=== PATIENT | male | born 1935 | race Caucasian/White ===

== ENCOUNTER 2017-09-19 11:15 | Emergency (ER) | payer OTHER ==
[~2017-09-19] VITALS: Ht 182.9 cm; Wt 90.7 kg
--- NOTE | 2017-09-19 11:22 | NUR ---
Unable to obtain info about home meds from [facility] staff or pt.
--- NOTE | 2017-09-19 11:38 | NUR ---
DR AREVALO AT THE BEDSIDE FOR MSE.
[2017-09-19 12:46] LABS: BASOPHILS # (AUTO) 0.1 K/uL (0.0-8.0); BASOPHILS % (AUTO) 0.8 % (0.0-2.0); EOSINOPHILS # (AUTO) 0.1 K/uL (0.0-0.7); EOSINOPHILS % (AUTO) 1.3 % (0.0-7.0); HEMATOCRIT 41.5 % (36.7-47.1); HEMOGLOBIN 14.7 g/dL (12.5-16.3); LYMPHOCYTES # (AUTO) 1.7 K/uL (20.0-40.0); LYMPHOCYTES % (AUTO) 21.1 % (20.5-51.5); MEAN CORPUSCULAR HGB CONC 36 g/dL (32.5-36.3); MEAN CORPUSCULAR VOLUME 87.4 fL (73.0-96.2); MONOCYTES # (AUTO) 0.6 K/uL (2.0-10.0); MONOCYTES % (AUTO) 8.1 % (0.0-11.0); NEUTROPHILS # (AUTO) 5.4 K/uL (1.8-8.9); NEUTROPHILS % (AUTO) 68.7 % (38.5-71.5); PLATELET COUNT (AUTO) 156 K/uL (152-348); RED BLOOD CELL COUNT(AUTO) 4.76 MIL/uL (4.06-5.63); WHITE BLOOD COUNT (AUTO) 7.9 K/uL (3.6-10.2)
[2017-09-19 12:52] LABS: CARBON DIOXIDE 27 mmol/L (21-32); CHLORIDE 105 mmol/L (98-107); CREATININE 1.1 mg/dL (0.6-1.3); GLUCOSE 86 mg/dL (74-106); POTASSIUM 3.9 mmol/L (3.5-5.1); UREA NITROGEN, BLOOD 20 mg/dL (7-18)
[2017-09-19 12:58] LABS: ALANINE AMINOTRANSFERASE 19 U/L (16-63); ALKALINE PHOSPHATASE 51 U/L (50-136); ASPARTATE AMINOTRANSFERASE 13 U/L (15-37); BILIRUBIN,TOTAL 0.4 mg/dL (0.2-1.0); CREATINE KINASE, TOTAL 87 U/L (39-308); TOTAL PROTEIN, SERUM 6.9 g/dL (6.4-8.2)
[2017-09-19 13:50] LABS: *BILIRUBIN,URIN NEGATIVE (NEGATIVE); *BLOOD, URINE NEGATIVE (NEGATIVE); *CLARITY,URINE CLEAR (CLEAR); *COLOR,URINE YELLOW (YELLOW); *KETONES,URINE NEGATIVE (NEGATIVE); *PROTEIN,URINE TRACE (NEGATIVE); *UROBILINOGEN,URINE 0.2 E.U./dl (NORMAL); LEUKOCYTE ESTERASE ,URINE NEGATIVE (NEGATIVE); NITRITE, URINE NEGATIVE (NEGATIVE); PH,URINE 6.5 (5.0-8.0); UGLUCOSE NEGATIVE (NEGATIVE)
[2017-09-19 13:59] LABS: BACTERIA,URINE FEW /HPF (NONE SEEN); RBC,URINE 0-3 /HPF (0-3); SQUAMOUS EPITHELIAL CELL,UR FEW /HPF (NONE SEEN); WBC,URINE 0-3 /HPF (0-3)
--- NOTE | 2017-09-19 14:00 | NUR ---
PT WITH CORRECTION STAFF. PT ON BEDPAN. PT SOMES NO SIGN OF DISTRESS. PT IS AOX4.
--- NOTE | 2017-09-19 14:19 | NUR ---
Patient discharged to home in stable conditon. Written and verbal after care instructions given. Patient caregiver verbalizes understanding of instructions.
[2017-09-19 14:20] VITALS: BP 133/70
== END 2017-09-19 14:22 | disposition home or self-care (01) ==
LOC: ER 11:15
DX: H10.9 Unspecified conjunctivitis (principal); L85.3 Xerosis cutis
CPT/HCPCS: 36415; 70030-TC; 70450; 71045; 85025; 85610; 93005; A4663

== ENCOUNTER 2017-10-12 11:54 | Emergency (ER) | payer OTHER ==
[~2017-10-12] VITALS: Ht 172.7 cm; Wt 90.7 kg
[2017-10-12] MEDS ORDERED: IV NORMAL SALINE 1000 ML BAG IV ONE (12:15)
[2017-10-12 12:27] LABS: BASOPHILS # (AUTO) 0.1 K/uL (0.0-8.0); BASOPHILS % (AUTO) 0.4 % (0.0-2.0); EOSINOPHILS % (AUTO) 0.1 % (0.0-7.0); HEMATOCRIT 50.3 % (36.7-47.1); HEMOGLOBIN 17.6 g/dL (12.5-16.3); LYMPHOCYTES # (AUTO) 1.2 K/uL (20.0-40.0); LYMPHOCYTES % (AUTO) 9.4 % (20.5-51.5); MEAN CORPUSCULAR HEMOGLOBIN 30.5 uug (23.8-33.4); MEAN CORPUSCULAR HGB CONC 35 g/dL (32.5-36.3); MONOCYTES # (AUTO) 0.4 K/uL (2.0-10.0); MONOCYTES % (AUTO) 3.5 % (0.0-11.0); NEUTROPHILS % (AUTO) 86.6 % (38.5-71.5); PLATELET COUNT (AUTO) 235 K/uL (152-348); RED BLOOD CELL COUNT(AUTO) 5.78 MIL/uL (4.06-5.63); WHITE BLOOD COUNT (AUTO) 12.7 K/uL (3.6-10.2)
[2017-10-12] MEDS ORDERED: SIMV20TA6 PO (12:32)
[2017-10-12] MEDS ORDERED: LISI10TA5 PO (12:32)
[2017-10-12] MEDS ORDERED: TERA2CAP4 PO (12:32)
[2017-10-12] MEDS ORDERED: MIRT15TA7 PO (12:32)
[2017-10-12] MEDS ORDERED: ALLO100T PO (12:32)
[2017-10-12 12:43] LABS: ALANINE AMINOTRANSFERASE 17 U/L (16-63); ALKALINE PHOSPHATASE 124 U/L (50-136); ASPARTATE AMINOTRANSFERASE 16 U/L (15-37); BILIRUBIN,DIRECT 0.2 mg/dL (0.0-0.2); BILIRUBIN,TOTAL 0.9 mg/dL (0.2-1.0); CARBON DIOXIDE 24 mmol/L (21-32); CHLORIDE 98 mmol/L (98-107); CREATININE 1.1 mg/dL (0.6-1.3); GLUCOSE 222 mg/dL (74-106); LIPASE 116 U/L (73-393); POTASSIUM 3.2 mmol/L (3.5-5.1); UREA NITROGEN, BLOOD 15 mg/dL (7-18)
--- NOTE | 2017-10-12 13:12 | NUR ---
talked to [employer] sales representative, requesting to fax the list of pt allergies
[2017-10-12] MEDS ORDERED: POTASSIUM CHLORIDE 20 MEQ TAB.PRT.SR PO ONE (13:15)
--- NOTE | 2017-10-12 13:27 | NUR ---
Per Dr. Sargent pt may be d/c back to assisted living facility. I spoke with pt's caregiver Kusum ([phone] ) who stated someone will be here in 30 mins to pick the pt up.
[2017-10-12] MEDS ORDERED: POTASSIUM CHLORIDE 20 MEQ TAB.PRT.SR ONE (13:32)
--- NOTE | 2017-10-12 15:22 | NUR ---
Called pt's caregiver Kusum again and she stated someone is on the way to olive picker the pt.
[2017-10-12] MEDS ORDERED: ONDANSETRON ODT 4 MG TAB.RAPDIS SL ONE (17:15)
--- NOTE | 2017-10-12 17:20 | NUR ---
PT CAREGIVER AT BEDSIDE TO TAKE THE PT HOME. Addendum: 10/12/17 at 1731 by MAGDIEL Patient discharged to home in stable conditon. Written and verbal after care instructions given. Patient verbalizes understanding of instructions.PT SAYS FEELS GOOD, DENEIS ANY PAIN DIZZINESS OR NAUSEA AT THIS TIME.
[2017-10-12] MEDS ORDERED: ONDANSETRON ODT 4 MG TAB.RAPDIS ONE (17:25)
[2017-10-12 17:33] VITALS: BP 139/91
== END 2017-10-12 17:34 | disposition home or self-care (01) ==
LOC: ER 11:54
DX: R11.2 Nausea with vomiting, unspecified (principal); M48.56XA Collapsed vertebra, not elsewhere classified, lumbar region, initial encounter for fracture; K57.30 Diverticulosis of large intestine without perforation or abscess without bleeding; H91.90 Unspecified hearing loss, unspecified ear
CPT/HCPCS: 36415; 70030-TC; 71045; 83605; 83690; 85025; 85730; 93005; A4663; J7030; Q0162

== ENCOUNTER 2017-10-16 22:09 | Emergency (ER) | payer OTHER ==
[~2017-10-16] VITALS: Ht 177.8 cm; Wt 89.4 kg
[~2017-10-16 22:09] MED LIST: ALLO100T PO; LISI10TA5 PO; MIRT15TA7 PO; SIMV20TA6 PO; TERA2CAP4 PO
[2017-10-16] MEDS ORDERED: IV NORMAL SALINE 1000 ML BAG IV ONE (22:30)
[2017-10-16] MEDS ORDERED: VANCOMYCIN IV 1,000 MG in IV DEXTROSE 5% 250 ML IV ONE (22:30)
[2017-10-16] MEDS ORDERED: PIPERACILLIN SODIUM/TAZOBACTAM 3.375 G in IV DEXTROSE 5% 50 ML IV ONE (22:30)
--- NOTE | 2017-10-16 22:30 | NUR ---
Seen and examined by Dr. Valle.
[2017-10-16 22:53] LABS: BASOPHILS # (AUTO) 0.1 K/uL (0.0-8.0); BASOPHILS % (AUTO) 0.8 % (0.0-2.0); EOSINOPHILS # (AUTO) 0.1 K/uL (0.0-0.7); EOSINOPHILS % (AUTO) 0.9 % (0.0-7.0); HEMATOCRIT 42.6 % (36.7-47.1); HEMOGLOBIN 14.6 g/dL (12.5-16.3); LYMPHOCYTES # (AUTO) 2.3 K/uL (20.0-40.0); LYMPHOCYTES % (AUTO) 23.6 % (20.5-51.5); MEAN CORPUSCULAR HEMOGLOBIN 30.2 uug (23.8-33.4); MEAN CORPUSCULAR HGB CONC 34 g/dL (32.5-36.3); MONOCYTES # (AUTO) 0.8 K/uL (2.0-10.0); MONOCYTES % (AUTO) 8.3 % (0.0-11.0); NEUTROPHILS # (AUTO) 6.5 K/uL (1.8-8.9); NEUTROPHILS % (AUTO) 66.4 % (38.5-71.5); PLATELET COUNT (AUTO) 169 K/uL (152-348); RED BLOOD CELL COUNT(AUTO) 4.84 MIL/uL (4.06-5.63); WHITE BLOOD COUNT (AUTO) 9.7 K/uL (3.6-10.2)
[2017-10-16 23:00] LABS: CARBON DIOXIDE 27 mmol/L (21-32); CHLORIDE 106 mmol/L (98-107); CREATININE 1.3 mg/dL (0.6-1.3); GLUCOSE 105 mg/dL (74-106); POTASSIUM 3.5 mmol/L (3.5-5.1); UREA NITROGEN, BLOOD 15 mg/dL (7-18)
[2017-10-16] MEDS ORDERED: TRAM50TA2 PO (23:08)
[2017-10-16] MEDS ORDERED: HYDR-4174 RC (23:08)
[2017-10-16] MEDS ORDERED: ACET-73 PO (23:08)
[2017-10-16 23:14] LABS: ALANINE AMINOTRANSFERASE 77 U/L (16-63); ALKALINE PHOSPHATASE 103 U/L (50-136); ASPARTATE AMINOTRANSFERASE 24 U/L (15-37); BILIRUBIN,DIRECT 0.2 mg/dL (0.0-0.2); BILIRUBIN,TOTAL 0.6 mg/dL (0.2-1.0); TOTAL PROTEIN, SERUM 6.9 g/dL (6.4-8.2)
[2017-10-16] MEDS ORDERED: PIPERACILLIN/TAZOBACTAM/D5W 50 ML IV ONE (23:23)
[2017-10-16] MEDS ORDERED: VANCOMYCIN IV 200 ML ONE (23:23)
[2017-10-16 23:49] LABS: *BILIRUBIN,URIN NEGATIVE (NEGATIVE); *BLOOD, URINE NEGATIVE (NEGATIVE); *CLARITY,URINE CLEAR (CLEAR); *COLOR,URINE YELLOW (YELLOW); *KETONES,URINE NEGATIVE (NEGATIVE); *PROTEIN,URINE NEGATIVE (NEGATIVE); *UROBILINOGEN,URINE 0.2 E.U./dl (NORMAL); BACTERIA,URINE NONE SEEN /HPF (NONE SEEN); LEUKOCYTE ESTERASE ,URINE NEGATIVE (NEGATIVE); NITRITE, URINE NEGATIVE (NEGATIVE); RBC,URINE NONE SEEN /HPF (0-3); UGLUCOSE NEGATIVE (NEGATIVE); WBC,URINE 0-3 /HPF (0-3)
[2017-10-16 23:50] LABS: SQUAMOUS EPITHELIAL CELL,UR FEW /HPF (NONE SEEN)
--- NOTE | 2017-10-17 | NUR ---
Patient pulled out IV by accident. New IV started to RFA with angio cath#20. IV and antibiotic resumed.
[2017-10-17] MEDS ORDERED: HYDROCODONE/APAP 5-325MG TABLET PO ONE (00:15)
[2017-10-17] MEDS ORDERED: HYDROCODONE/APAP 5-325MG TABLET ONE (00:57)
[2017-10-17] MEDS ORDERED: TRAMADOL HCL 50 MG TABLET PO PRN (01:15)
[2017-10-17] MEDS ORDERED: ACETAMINOPHEN 325 MG TABLET PO PRN (01:30)
[2017-10-17] MEDS ORDERED: ONDANSETRON 4 MG/2 ML VIAL IV PRN (01:30)
--- NOTE | 2017-10-17 01:45 | NUR ---
Alon[facility] ROJAS called; transport ETA @0817.
--- NOTE | 2017-10-17 02:15 | NUR ---
Report given to Meghan CHIN @ [facility].
--- NOTE | 2017-10-17 02:40 | NUR ---
BPs trending higher. Patient AAO, no nuero changes. Claims he did not take his Lisinopril dose. Dr. Valle informed.
[2017-10-17] MEDS ORDERED: LABETALOL HCL 100 MG/20 ML VIAL IV ONE (02:45)
[2017-10-17 02:50] VITALS: BP 179/110
--- NOTE | 2017-10-17 02:50 | NUR ---
Labetalol 20 mg slow IV given. Transport here @ 0230. Report given to Devan.
--- NOTE | 2017-10-17 03:00 | NUR ---
Labetalol effective. Meghan CHIN at [facility] informed of Labetalol dose given. Message left to Kusum caregiver re: patient's transfer to [facility].
[2017-10-17] MEDS ORDERED: LABETALOL HCL 100 MG/20 ML VIAL ONE (03:02)
--- NOTE | 2017-10-17 03:25 | NUR ---
Patient Tranfers to outside Facility [facility] Physician: Dr. Taveras Location: [facility]
[2017-10-17] MEDS ORDERED: PIPERACILLIN/TAZOBACTAM/D5W 3.375 G in PREMIXED 1 EACH IV SCH (06:00)
[2017-10-17] MEDS ORDERED: PANTOPRAZOLE SODIUM 40 MG TABLET.DR PO SCH (07:00)
[2017-10-17] MEDS ORDERED: FUROSEMIDE 20 MG/2 ML VIAL IV SCH (09:00)
[2017-10-17] MEDS ORDERED: ALLOPURINOL 100 MG TABLET PO SCH (21:00)
[2017-10-17] MEDS ORDERED: DOCUSATE SODIUM 250 MG CAPSULE PO SCH (21:00)
[2017-10-17] MEDS ORDERED: LISINOPRIL 10 MG TABLET PO SCH (21:00)
[2017-10-17] MEDS ORDERED: MIRTAZAPINE 15 MG TABLET PO SCH (21:00)
[2017-10-17] MEDS ORDERED: TERAZOSIN 2 MG CAPSULE PO SCH (21:00)
[2017-10-17] MEDS ORDERED: SIMVASTATIN 20 MG TABLET PO SCH (21:00)
== END 2017-10-17 03:25 | disposition short-term general hospital (02) ==
LOC: ER 22:11
DX: L03.211 Cellulitis of face (principal); M48.56XA Collapsed vertebra, not elsewhere classified, lumbar region, initial encounter for fracture; E78.5 Hyperlipidemia, unspecified; K57.30 Diverticulosis of large intestine without perforation or abscess without bleeding; M43.16 Spondylolisthesis, lumbar region; Z94.7 Corneal transplant status
CPT/HCPCS: 36415; 70030-TC; 71045; 83605; 85025; 85730; 87040; 87086; 93005; A4663; J2543; J3370; J3490; J7030

== ENCOUNTER 2017-10-21 23:53 | Inpatient (IN) | payer OTHER ==
[~2017-10-21] VITALS: Ht 177.8 cm; Wt 90.7 kg
[~2017-10-21 23:53] MED LIST changes: +ACET-73 PO; +HYDR-4174 RC; +TRAM50TA2 PO
[2017-10-22 00:49] LABS: BASOPHILS # (AUTO) 0.1 K/uL (0.0-8.0); BASOPHILS % (AUTO) 0.9 % (0.0-2.0); EOSINOPHILS # (AUTO) 0.1 K/uL (0.0-0.7); EOSINOPHILS % (AUTO) 1.1 % (0.0-7.0); HEMATOCRIT 41.7 % (36.7-47.1); HEMOGLOBIN 14.3 g/dL (12.5-16.3); LYMPHOCYTES % (AUTO) 11.6 % (20.5-51.5); MEAN CORPUSCULAR HEMOGLOBIN 30.4 uug (23.8-33.4); MEAN CORPUSCULAR HGB CONC 34 g/dL (32.5-36.3); MEAN CORPUSCULAR VOLUME 88.4 fL (73.0-96.2); MONOCYTES # (AUTO) 0.8 K/uL (2.0-10.0); MONOCYTES % (AUTO) 9.4 % (0.0-11.0); NEUTROPHILS # (AUTO) 6.8 K/uL (1.8-8.9); PLATELET COUNT (AUTO) 143 K/uL (152-348); RED BLOOD CELL COUNT(AUTO) 4.72 MIL/uL (4.06-5.63); WHITE BLOOD COUNT (AUTO) 8.8 K/uL (3.6-10.2)
[2017-10-22 00:59] LABS: CARBON DIOXIDE 27 mmol/L (21-32); CHLORIDE 104 mmol/L (98-107); CREATININE 1.2 mg/dL (0.6-1.3); GLUCOSE 104 mg/dL (74-106); POTASSIUM 3.9 mmol/L (3.5-5.1); UREA NITROGEN, BLOOD 20 mg/dL (7-18)
[2017-10-22 01:04] LABS: ALANINE AMINOTRANSFERASE 27 U/L (16-63); ALKALINE PHOSPHATASE 94 U/L (50-136); ASPARTATE AMINOTRANSFERASE 17 U/L (15-37); BILIRUBIN,DIRECT 0.1 mg/dL (0.0-0.2); BILIRUBIN,TOTAL 0.5 mg/dL (0.2-1.0); TOTAL PROTEIN, SERUM 6.8 g/dL (6.4-8.2)
[2017-10-22] MEDS ORDERED: GABAPENTIN 300 MG CAPSULE PO ONE (01:15)
[2017-10-22] MEDS ORDERED: VANCOMYCIN IV 1,000 MG in IV DEXTROSE 5% 250 ML IV ONE (01:30)
[2017-10-22] MEDS ORDERED: diphenhydrAMINE 50 MG/1 ML VIAL IV ONE (01:30)
[2017-10-22] MEDS ORDERED: GABAPENTIN 300 MG CAPSULE ONE (01:42)
[2017-10-22] MEDS ORDERED: diphenhydrAMINE 50 MG/1 ML VIAL ONE (01:44)
[2017-10-22] MEDS ORDERED: VANCOMYCIN IV 200 ML ONE (01:45)
[2017-10-22 01:48] LABS: *BILIRUBIN,URIN NEGATIVE (NEGATIVE); *BLOOD, URINE NEGATIVE (NEGATIVE); *CLARITY,URINE CLEAR (CLEAR); *COLOR,URINE YELLOW (YELLOW); *KETONES,URINE NEGATIVE (NEGATIVE); *PROTEIN,URINE 1+ (NEGATIVE); *UROBILINOGEN,URINE 0.2 E.U./dl (NORMAL); LEUKOCYTE ESTERASE ,URINE NEGATIVE (NEGATIVE); NITRITE, URINE NEGATIVE (NEGATIVE); UGLUCOSE NEGATIVE (NEGATIVE)
[2017-10-22 01:59] LABS: BACTERIA,URINE FEW /HPF (NONE SEEN); RBC,URINE 0-3 /HPF (0-3); SQUAMOUS EPITHELIAL CELL,UR FEW /HPF (NONE SEEN); WBC,URINE 0-3 /HPF (0-3)
[2017-10-22] MEDS ORDERED: AZITHROMYCIN IV 500 MG in IV DEXTROSE 5% 250 ML IV ONE (03:00)
[2017-10-22] MEDS ORDERED: CEFTRIAXONE 1 G in IV DEXTROSE 5% 50 ML IV ONE (03:00)
[2017-10-22 04:00] VITALS: BP 152/93
[2017-10-22] MEDS ORDERED: CEFTRIAXONE 1 G VIAL ONE (04:00)
[2017-10-22] MEDS ORDERED: ACETAMINOPHEN 325 MG TABLET PO PRN (04:15)
[2017-10-22] MEDS ORDERED: MORPHINE SULFATE 2 MG/1 ML DISP.SYRIN IV PRN (04:15)
[2017-10-22] MEDS ORDERED: MAGNESIUM HYDROXIDE 30 ML LIQUID UDC PO PRN (04:15)
[2017-10-22] MEDS ORDERED: ALBUTEROL SULFATE 2.5 MG/3 ML NEBU NEB PRN (04:15)
[2017-10-22] MEDS ORDERED: ONDANSETRON 4 MG/2 ML VIAL IV PRN (04:15)
[2017-10-22] MEDS ORDERED: AZITHROMYCIN 500 MG VIAL IV ONE (04:20)
--- NOTE | 2017-10-22 04:23 | NUR ---
Pt. admitted to TELE, under care of Dr. Cavazos Belongs List completed
[2017-10-22] MEDS ORDERED: PIPERACILLIN/TAZOBACTAM/D5W 3.375 G in PREMIXED 1 EACH IV SCH ×2 (06:00→10:00)
[2017-10-22] MEDS: GABAPENTIN 300 MG CAPSULE PO SCH ×3 (06:06→15:03)
--- NOTE | 2017-10-22 06:33 | NUR ---
Received patient from ED via [employer]. A&O x 3 but very hard of hearing and difficultly seeing. Ushered safely to room. Oriented patient to his room. Used a paper and marker to communicate. Belonging lists done. Skin check done. Noted red bumps all over the body, especially on the face. Patient says it is itchy. TELE Sinus Rhythm. IV Abx infusing. Safety initiated. Call light within reach. Walker and cane at bedside. Instructed patient to use the call light when in need of assistance. Patient understood. Room is kept clutter free. bed is in locked position. Vital signs done, BP runs high. Will closely monitor.
--- NOTE | 2017-10-22 07:30 | NUR ---
RECEIVED SHIFT REPORT FROM GENERAL NEUROLOGIST NURSE. PATIENT RESTING IN BED AT THIS TIME. APPEARS TO BE SCRATCHING CHIN AREA, WHICH IS REDDENED. EXCORIATED SKIN IN THAT AREA. COMPLAINS OF ITCHINESS IN FACIAL AREA. 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 GAIT IS VERY UNSTEADY AND WEAK. PATIENT IN A DIAPER, WILL PLACE BEDSIDE COMMODE AT BEDSIDE. BED ALARM ON, CALL LIGHT WITHIN REACH. SAFETY/COMFORT WILL BE PROVIDED.
[2017-10-22] MEDS: PANTOPRAZOLE SODIUM 40 MG TABLET.DR PO SCH (08:50)
[2017-10-22] MEDS: FUROSEMIDE 20 MG/2 ML VIAL IV SCH (08:50)
[2017-10-22 11:03] VITALS: BP 128/73
--- NOTE | 2017-10-22 12:06 | NUR ---
Clinical Pharmacy Note: Vancomycin Dosing per Pharmacy Subjective: Vancomycin IV to start on this 82 yo male patient for pna, facial redness (cellulitis??). Patient received vanco 1000mg IVPB x1 in ED on 10/22 at midnight. ht 177.8 cm wt 90.7 kg Objective: BUN 20/Scr 1.2 WBC 8.8 Temperature 98.5 Assessment/Plan: Will start vancomycin 1500mg IVPB Q22hr for a predicted vancomycin steady state trough level of 15 mcg/ml. [facility]. Will draw a vancomycin trough level prior to the 4th dose of vancomycin (not ordered yet). Will monitor renal function and adjust vancomycin dose, if needed, should renal function change significantly. Will follow daily. Addendum: 10/22/17 at 1219 by ELEONORA MORSE ER DOSE WAS GIVEN AT 0100
[2017-10-22] MEDS ORDERED: MORPHINE SULFATE 4 MG/1 ML DISP.SYRIN IV PRN (12:15)
[2017-10-22] MEDS ORDERED: DEXTROSE 5% IV SCH (15:00)
[2017-10-22] MEDS ORDERED: ACYCLOVIR IV SCH ×2 (15:00→22:00)
--- NOTE | 2017-10-22 15:12 | NUR ---
PT VERBALIZED THAT HE GETS SICK FROM GABAPENTIN. EXPLAINED TO PATIENT THE MEDICATION ORDERED FOR HIM AND THAT IS WHEN HE VERBALIZED NEGATIVE REACTIONS TO GABAPENTIN. DID NOT ADMINISTER MEDICATION. WILL NOTIFY PHARMACY
[2017-10-22 15:26] VITALS: BP 139/76
[2017-10-22] MEDS: NORMAL SALINE IV SCH ×2 (16:49→23:47)
[2017-10-22] MEDS: ACYCLOVIR IV SCH ×2 (16:49→23:47)
[2017-10-22] MEDS: TRAMADOL HCL 50 MG TABLET PO PRN (18:28)
--- NOTE | 2017-10-22 19:43 | NUR ---
PT COMPLAINED OF LOWER BACK ACHING PAIN, 10/10 ON PAIN SCALE. TRAMADOL WAS ADMINISTERED. PATIENT NOW TOLERATES PAIN.
--- NOTE | 2017-10-22 19:54 | NUR ---
DISCHARGE ORDERS GIVEN FOR PATIENT TO BE TRANSFERRED TO [facility] DUE TO INSURANCE. AWAITING BED TO BE OPEN BY [facility] FOR PATIENT TO BE APPROVED FOR TRANSFER.
[2017-10-22 20:00] VITALS: BP 129/73
[2017-10-22] MEDS: VANCOMYCIN IV 1,500 MG in IV NORMAL SALINE 500 ML IV SCH (20:15)
[2017-10-22] MEDS ORDERED: MIRTAZAPINE 15 MG TABLET PO SCH (21:00)
[2017-10-22] MEDS ORDERED: ALLOPURINOL 100 MG TABLET PO SCH (21:00)
[2017-10-22] MEDS ORDERED: DOCUSATE SODIUM 100 MG CAPSULE PO SCH (21:00)
[2017-10-22] MEDS ORDERED: LISINOPRIL 10 MG TABLET PO SCH (21:00)
[2017-10-22] MEDS ORDERED: TERAZOSIN 2 MG CAPSULE PO SCH (21:00)
[2017-10-22] MEDS ORDERED: SIMVASTATIN 20 MG TABLET PO SCH (21:00)
[2017-10-22] MEDS ORDERED: DOCUSATE SODIUM 250 MG CAPSULE PO SCH (21:00)
--- NOTE | 2017-10-22 21:00 | NUR ---
PATIENT IS ASLEEP IN BED, HE'S TORRES MARTINEZ DENIES PAIN OR ANY DISCOMFORT. HE HAD A FEVER OF 102.9 TYLENOL WAS GIVEN WITH EFFECT, TEMP IS NOW 99.0. ALL SAFETY MEASURES IN PLACE, CALL LIGHT WITHIN PATIENT'S REACH, WILL CONTINUE TO MONITOR PATIENT
[2017-10-22] MEDS ORDERED: NORMAL SALINE IV SCH (22:00)
[2017-10-22] MEDS ORDERED: GABAPENTIN 300 MG CAPSULE PO SCH (22:00)
[2017-10-23 04:33] VITALS: BP 139/78
[2017-10-23] MEDS: PANTOPRAZOLE SODIUM 40 MG TABLET.DR PO SCH (06:00)
[2017-10-23 06:39] LABS: BASOPHILS % (AUTO) 0.5 % (0.0-2.0); EOSINOPHILS # (AUTO) 0.1 K/uL (0.0-0.7); EOSINOPHILS % (AUTO) 1.6 % (0.0-7.0); HEMATOCRIT 40.6 % (36.7-47.1); HEMOGLOBIN 13.9 g/dL (12.5-16.3); LYMPHOCYTES # (AUTO) 1.2 K/uL (20.0-40.0); LYMPHOCYTES % (AUTO) 13.9 % (20.5-51.5); MEAN CORPUSCULAR HEMOGLOBIN 30.5 uug (23.8-33.4); MEAN CORPUSCULAR HGB CONC 34 g/dL (32.5-36.3); MONOCYTES # (AUTO) 1.1 K/uL (2.0-10.0); MONOCYTES % (AUTO) 12.8 % (0.0-11.0); NEUTROPHILS # (AUTO) 5.9 K/uL (1.8-8.9); NEUTROPHILS % (AUTO) 71.2 % (38.5-71.5); PLATELET COUNT (AUTO) 137 K/uL (152-348); RED BLOOD CELL COUNT(AUTO) 4.56 MIL/uL (4.06-5.63); WHITE BLOOD COUNT (AUTO) 8.3 K/uL (3.6-10.2)
[2017-10-23 06:51] LABS: ALANINE AMINOTRANSFERASE 22 U/L (16-63); ALKALINE PHOSPHATASE 73 U/L (50-136); ASPARTATE AMINOTRANSFERASE 17 U/L (15-37); BILIRUBIN,TOTAL 0.8 mg/dL (0.2-1.0); CARBON DIOXIDE 27 mmol/L (21-32); CHLORIDE 105 mmol/L (98-107); CHOLESTEROL 84 mg/dL (<200); CREATININE 1.3 mg/dL (0.6-1.3); GLUCOSE 89 mg/dL (74-106); HDL CHOLESTEROL 31 mg/dL (40-60); PHOSPHOROUS 3.6 mg/dL (2.5-4.9); POTASSIUM 3.5 mmol/L (3.5-5.1); TOTAL PROTEIN, SERUM 6.5 g/dL (6.4-8.2); TRIGLYCERIDES 105 MG/DL (30-150); UREA NITROGEN, BLOOD 20 mg/dL (7-18)
[2017-10-23 06:57] LABS: THYROID STIMULATING HORMONE 0.244 mIU/mL (0.358-3.740)
[2017-10-23] MEDS: TRAMADOL HCL 50 MG TABLET PO PRN (06:59)
--- NOTE | 2017-10-23 07:00 | NUR ---
RECEIVED PATIENT ON BED AWAKE, A AND O X 3, ON CONTACT ISOLATION FOR HERPES. NO ACUTE DISTRESS NOTED. WITH HEPLOCK ON THE RFA #20. REDNESS AND RASHES NOTED ON THE CHIN, LEFT SIDE OF FACE, TOP OF HEAD, AND LEFT CHEST. ON O2 2LPM VIA NC, WELL TOLERATED. INDEPENDENT WITH MEALS AND BED MOBILITY. COMFORT MEASURES PROVIDED WILL CONTINUE TO MONITOR CLOSELY.
--- NOTE | 2017-10-23 07:00 | NUR ---
PATIENT COMPLAINS OF LOWER BACK PAIN, PRN PAIN MEDICATION GIVEN ORDERED. COMFORT MEASURES IN PLACE
[2017-10-23] MEDS: FUROSEMIDE 20 MG/2 ML VIAL IV SCH (09:13)
[2017-10-23] MEDS: NORMAL SALINE IV SCH ×2 (09:13→15:04)
[2017-10-23] MEDS: ACYCLOVIR IV SCH ×2 (09:13→15:04)
[2017-10-23 12:00] VITALS: BP 92/46
--- NOTE | 2017-10-23 15:01 | NUR ---
Clinical Pharmacy Note: Vancomycin Dosing per Pharmacy Subjective: Vancomycin IV to start on this 82 yo male patient for pna, facial redness (cellulitis??). . ht 177.8 cm wt 90.7 kg Objective: BUN 20/Scr 1.3 WBC 8.3 Temperature 99.2 Assessment/Plan: Will continue vancomycin 1500mg IVPB Q22hr for a predicted vancomycin steady state trough level of 15 mcg/ml. 2nd dose is due tonight at 1800. Will draw a vancomycin trough level prior to the 4th dose of vancomycin (not ordered yet). Will monitor renal function and adjust vancomycin dose, if needed, should renal function change significantly. Will follow daily.
[2017-10-23 15:49] VITALS: BP 114/62
[2017-10-23] MEDS: VANCOMYCIN IV 1,500 MG in IV NORMAL SALINE 500 ML IV SCH (17:06)
--- NOTE | 2017-10-23 18:35 | NUR ---
REPORT GIVEN TO SHARRON CHIN AT [facility], AWAITING TRANSPORTATION, WILL ARRIVE AT 1930 PM PER PHIL FROM [facility]
[2017-10-23 20:08] VITALS: BP 127/78
== END 2017-10-23 20:30 | disposition short-term general hospital (02) | DRG 865 ==
LOC: ER 23:55 → MED 10-22 04:11 → TELE 10-22 05:01 → MED 10-22 10:10
PROVIDERS: ADMIT Internal Medicine; ATTEND Internal Medicine
DX: B02.8 Zoster with other complications (principal); J15.6 Pneumonia due to other Gram-negative bacteria; G93.40 Encephalopathy, unspecified; G62.9 Polyneuropathy, unspecified; I13.10 Hypertensive heart and chronic kidney disease without heart failure, with stage 1 through stage 4 chronic kidney disease, or unspecified chronic kidney disease; N18.3 Chronic kidney disease, stage 3 (moderate); F03.90 Unspecified dementia, unspecified severity, without behavioral disturbance, psychotic disturbance, mood disturbance, and anxiety; L03.211 Cellulitis of face; E66.01 Morbid (severe) obesity due to excess calories; G89.29 Other chronic pain; Z94.7 Corneal transplant status; Z87.891 Personal history of nicotine dependence; Z68.28 Body mass index [BMI] 28.0-28.9, adult; R73.03 Prediabetes; H35.30 Unspecified macular degeneration; N40.0 Benign prostatic hyperplasia without lower urinary tract symptoms; Z79.899 Other long term (current) drug therapy; Z96.1 Presence of intraocular lens; I25.10 Atherosclerotic heart disease of native coronary artery without angina pectoris; E78.5 Hyperlipidemia, unspecified; H91.90 Unspecified hearing loss, unspecified ear; M47.816 Spondylosis without myelopathy or radiculopathy, lumbar region; M48.56XD Collapsed vertebra, not elsewhere classified, lumbar region, subsequent encounter for fracture with routine healing; L29.9 Pruritus, unspecified
CPT/HCPCS: 36415; 70030-TC; 71045; 72131; 83735; 84100; 84443; 85025; 85730; 87040; 87077; 87086; 93005; 93307; A4663; J0133; J0456; J0696; J1200; J1940; J2405; J2543; J3370; J3490; J7040; J7060; J8499